=== PATIENT | female | born 1970 | race Caucasian/White ===

== ENCOUNTER 2017-03-25 12:34 | Inpatient (IN) | payer BC ==
[~2017-03-25] VITALS: Ht 165.1 cm; Wt 76.4 kg
[~2017-03-25 12:34] MED LIST: PERCOCET 325 MG1 TA5 PO; PRILOSEC20 M1 PO; SYNTHROID,LEV125 MCG PO; ZOLOFT100 MG PO
[2017-03-25] MEDS ORDERED: OSTERA TABLET1 EACH PO (12:39)
[2017-03-25] MEDS ORDERED: BUSPIRONE HCL15 MG PO (12:40)
[2017-03-25] MEDS ORDERED: ATORVASTATIN CA20 M1 PO (12:40)
[2017-03-25 12:42] VITALS: BP 99/68
[2017-03-25 12:56] LABS: BASO % 0.4 % (0.0-1.0); EOS # 0.1 10*3/uL (0.0-0.4); HEMOGLOBIN 15.9 g/dl (12.0-16.0); LYMPH # 1.6 10*3/uL (1.3-4.4); LYMPH % 14.7 % (27.0-41.0); MEAN CELL VOLUME 88.1 fl (81.0-99.0); MEAN CORPUSCULAR HGB 29.2 pg (27.0-31.0); MEAN CORPUSCULAR HGB CONC 33.1 g/dl (33.0-37.0); MEAN PLATELET VOLUME 10.7 fl (9.6-12.3); MONO # 0.6 10*3/uL (0.1-1.0); MONO % 5.9 % (3.0-9.0); NEUT # 8.4 10*3/uL (2.3-7.9); NEUT % 77.6 % (47.0-73.0); PLATELET COUNT AUTOMATED 183 10*3/uL (130-400); RED BLOOD COUNT 5.45 10*6/uL (4.10-5.10); RED CELL DISTRI WIDTH 13.8 % (0-14.5); WHITE BLOOD COUNT 10.8 10*3/uL (4.8-10.8)
[2017-03-25 13:14] LABS: ALBUMIN 4.2 gm/dl (3.1-4.5); CREATININE 1.49 mg/dL (0.55-1.02); POTASSIUM 4.1 mmol/L (3.5-5.1); TOTAL PROTEIN 8.3 gm/dL (6.4-8.2)
[2017-03-25 13:22] LABS: THYROID STIM HORMONE (HS) 5.6 uIU/ml (0.358-4.75)
[2017-03-25 13:32] VITALS: BP 92/63
[2017-03-25 14:15] VITALS: BP 103/70
--- NOTE | 2017-03-25 14:29 | NUR ---
Time: 1428 A 46 year old female admitted to 5E under services of CHRISTEN GOMEZ DO. Pt. arrived via bed from ER. Chief complaint: acute kidney injury, gastroenteritis.. BANDAR CRUZ
[2017-03-25 14:56] VITALS: BP 112/72
[2017-03-25 15:57] LABS: BILIRUBIN NEGATIVE (NEGATIVE); BLOOD NEGATIVE (NEGATIVE); CLARITY CLOUDY (CLEAR); COLOR YELLOW (YELLOW); GLUCOSE NEGATIVE (NEGATIVE); KETONE NEGATIVE (NEGATIVE); LEUKO ESTERASE 1+ (NEGATIVE); NITRITE NEGATIVE (NEGATIVE); PH 5.5 (5.0-9.0); UROBILINOGEN 0.2 E.U./dl (0.2-1.0)
[2017-03-25 16:00] VITALS: BP 109/74
[2017-03-25 16:05] LABS: BACTERIA 1+; HYALINE CAST 41-50
[2017-03-25 16:07] LABS: WBC 16-20 wbc/hpf (0-5)
--- NOTE | 2017-03-25 18:15 | NUR ---
PATIENT GIVEN ZOFRAN PER PT REQUEST OF NAUSEA. WILL CONTINUE TO MONITOR.
--- NOTE | 2017-03-25 19:00 | NUR ---
ZOFRAN EFFECTIVE. PATIENT DENIES NAUSEA UPON REASSESS. WILL CONTINUE TO MONITOR.
[2017-03-25 20:00] VITALS: BP 119/65
[2017-03-26] VITALS: BP 87/47
[2017-03-26 00:44] VITALS: BP 68/40
--- NOTE | 2017-03-26 00:45 | NUR ---
DR NOTIFIED OF PT MANUAL BP OF 68/40. PT IS ASYMPTOMATIC AND DENIES ANY PAIN OR DIZZINESS.
--- NOTE | 2017-03-26 01:38 | NUR ---
24 HOUR CHART CHECK COMPLETED AT THIS TIME.
--- NOTE | 2017-03-26 01:42 | NUR ---
[facility] INQUIRING ABOUT PRESCRIPTION BUSPAR PRN. PER PT SHE TAKES NEEDED AT BEDTIME. DR. GREEN STATES HE ACKNOWLEDGES ORDER, WANTS PT TO CONTINUE TAKING NEEDED AT BEDTIME. [facility] MADE AWARE.
[2017-03-26 04:00] VITALS: BP 91/58
[2017-03-26 06:52] LABS: BASO % 0.2 % (0.0-1.0); EOS # 0.1 10*3/uL (0.0-0.4); EOS % 1.4 % (1.0-4.0); LYMPH # 1.4 10*3/uL (1.3-4.4); LYMPH % 31.5 % (27.0-41.0); MEAN CELL VOLUME 90.5 fl (81.0-99.0); MEAN CORPUSCULAR HGB 29.6 pg (27.0-31.0); MEAN CORPUSCULAR HGB CONC 32.7 g/dl (33.0-37.0); MEAN PLATELET VOLUME 10.6 fl (9.6-12.3); MONO # 0.4 10*3/uL (0.1-1.0); MONO % 8.4 % (3.0-9.0); NEUT # 2.5 10*3/uL (2.3-7.9); NEUT % 58.3 % (47.0-73.0); RED BLOOD COUNT 4.22 10*6/uL (4.10-5.10); RED CELL DISTRI WIDTH 13.8 % (0-14.5); WHITE BLOOD COUNT 4.3 10*3/uL (4.8-10.8)
[2017-03-26 07:15] LABS: HEMATOCRIT 38.2 % (37.0-47.0); HEMOGLOBIN 12.5 g/dl (12.0-16.0); PLATELET COUNT AUTOMATED 119 10*3/uL (130-400)
[2017-03-26 07:20] LABS: ALBUMIN 3.1 gm/dl (3.1-4.5); BUN 11 mg/dl (7-24); CHLORIDE 113 mmol/L (98-107); CHOLESTEROL 155 mg/dL (<200); CREATININE 0.74 mg/dL (0.55-1.02); FREE T4 0.71 ng/dl (0.76-1.46); PHOSPHOROUS 3.5 mg/dL (2.5-4.9); POTASSIUM 3.7 mmol/L (3.5-5.1); SGOT/AST 22 IU/L (3-35); SGPT/ALT 30 U/L (12-78); SODIUM 144 mmol/L (136-145); TOTAL PROTEIN 6.4 gm/dL (6.4-8.2); TRIGLYCERIDES 296 mg/dl (<150); VLDL CHOLESTEROL 59 mg/dL (6-40)
[2017-03-26 07:21] LABS: ALKALINE PHOSPHATASE 130 U/L (45-117); HDL CHOLESTEROL 24 mg/dl (40-60); LDL CHOLESTEROL 72 mg/dL (9-159)
[2017-03-26 08:00] VITALS: BP 112/69
[2017-03-26 08:34] LABS: VITAMIN D, 25-HYDROXY 12.1 ng/mL (30-100)
--- NOTE | 2017-03-26 09:00 | NUR ---
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 Patient states lives at home with . There are few steps in the home. Physician: [facility]: Home health services: none Patient's level of ADLs: INDEPENDENT Patient has working utilities: all working DME: none Follow-up physician's appointment after d/c: will be made by hospitalist nurse director upon discharge Does patient want to access PORTAL?: no Discharge plan discussed with patient, patient lives at home with , she is independent in adls and ambulation, works and drives, patient denies any home needs at this time. SANTOS KELLER
--- NOTE | 2017-03-26 11:10 | NUR ---
DR Rui GOMEZ AND TEAM ROUNDED.
[2017-03-26] MEDS ORDERED: ZOFRAN ODT4 MG SL (12:14)
--- NOTE | 2017-03-26 13:40 | NUR ---
Discharge instructions reviewed with patient/family. Patient receptive and verbalizes understanding. Follow-up care arranged. Written instructions given to patient/family.TELEMETRY ACCOUNTED FOR AND HEPLOCK REMOVED. KENDRA MALONE
== END 2017-03-26 13:40 | disposition home or self-care (01) | DRG 871 ==
LOC: ED 12:34 → EDHOLD 13:45 → 5E 13:45 → EDHOLD 13:54 → 5E 13:56
PROVIDERS: Emergency Medicine; Internal Medicine; ADMIT Internal Medicine
DX: A41.9 Sepsis, unspecified organism (principal); N17.0 Acute kidney failure with tubular necrosis; K52.9 Noninfective gastroenteritis and colitis, unspecified; K21.9 Gastro-esophageal reflux disease without esophagitis; E87.8 Other disorders of electrolyte and fluid balance, not elsewhere classified; E86.0 Dehydration; F41.9 Anxiety disorder, unspecified; E78.5 Hyperlipidemia, unspecified; E03.9 Hypothyroidism, unspecified; E86.1 Hypovolemia; D72.810 Lymphocytopenia; R00.0 Tachycardia, unspecified; Z91.041 Radiographic dye allergy status; Z79.899 Other long term (current) drug therapy; Z90.49 Acquired absence of other specified parts of digestive tract; Z87.891 Personal history of nicotine dependence; Z83.6 Family history of other diseases of the respiratory system; Z80.59 Family history of malignant neoplasm of other urinary tract organ; Z83.3 Family history of diabetes mellitus

== ENCOUNTER → 2017-08-26 | Outpatient (CLI) | payer BC ==
[~2017-08-26] MED LIST changes: +ATORVASTATIN CA20 M1 PO; +BUSPIRONE HCL15 MG PO; +OSTERA TABLET1 EACH PO; +ZOFRAN ODT4 MG SL
== END | disposition home or self-care (01) ==
LOC: MAMMO 12:15
DX: N63.31 Unspecified lump in axillary tail of the right breast (principal); R92.8 Other abnormal and inconclusive findings on diagnostic imaging of breast

== ENCOUNTER → 2017-09-08 | Day surgery (SDC) | payer BC ==
[2017-09-09 13:08] LABS: ACID FAST SPEC PROCESSING Tissue Grinding (.)
[2017-10-21 08:44] LABS: ACID FAST CULTURE Negative (.)
== END | disposition home or self-care (01) ==
LOC: SDC 04:36
PROVIDERS: Internal Medicine
DX: C85.94 Non-Hodgkin lymphoma, unspecified, lymph nodes of axilla and upper limb (principal)